=== PATIENT | female | born 1965 ===

== ENCOUNTER 2024-08-13 15:27 | Emergency (ER) | payer OTHER, SELFPAY ==
--- OUTSIDE RECORDS SUMMARY | 2024-08-13 15:32 | XMS REPORT | Continuity of Care Document ---
Author Name Unknown Address [address] [place] [address] th[address] Address [address] [place] [address] 1 495 [place] [address] Care Team Providers Care Workers Compensation Specialist Name Role Phone Unavailable Unavailable Unavailable Encounters Start Date/Time End Date/Time Encounter Type Admission Type Attending Clinicians Care Facility Care Department Encounter ID Source 2023-05-16 16:03:27 2023-05-16 16:03:27 Outpatient [facility] [id number] Trevon Ruiz 2023-01-30 14:20:43 2023-01-30 14:20:43 Outpatient [facility] [id number] Trevon Ruiz
--- NOTE | 2024-08-13 16:10 | RAD REPORT ---
EXAM: Chest Single View HISTORY: CHEST PAIN COMPARISON: None. FINDINGS: LUNGS/PLEURA: The lungs are clear. No pleural effusions or pneumothorax. No pulmonary edema. MEDIASTINUM: The mediastinal silhouette is within normal limits. CARDIAC: The cardiac silhouette is within normal limits. UPPER ABDOMEN: No significant abnormality. BONES: No acute abnormality. LINES/TUBES/OTHER: N/A IMPRESSION: No evidence of acute cardiopulmonary disease.
[2024-08-13 17:07] LABS: SARS-CoV-2 Antigen CONTROL BLUE LINE VIS/BG OK; SARS-CoV-2 Antigen Rapid Res Negative (Negative)
--- NOTE | 2024-08-13 17:12 | EDPHYS ---
Physician Documentation [facility] Name: Millie Carrero Age: 58 yrs Sex: Female : 1965 Arrival Date: 08/13/2024 Time: 15:27 Bed IW2 Private MD: ED Physician Jessee Millard HPI: 08/13 15:54 This 58 yrs old Unknown Female presents to ER via Unassigned with complaints of Cough. ms3 16:25 58-year-old female with no past medical history presents to the emergency department ms3 after becoming ill on Monday with a cough. Patient states symptoms lasted for 4 days and she took self medications and felt better. Patient states yesterday her nose began running and she developed a cough again. Patient states she is having chest discomfort that she rates a 5/10 from coughing. Patient states the pain is only present when coughing.. Historical: - Allergies: 16:19 No Known Allergies; ko1 - Home Meds: 16:19 None [Active]; ko1 - PMHx: 16:19 None; ko1 - PSHx: 16:19 Ligation of fallopian tube; breast augmentation; ko1 - Immunization history:: Adult Immunizations up to date. - Infectious Disease History:: Denies. - Social history:: Smoking status: Patient denies any tobacco usage or history of. ROS: 16:25 Constitutional: Negative for fever, and chills. ms3 16:25 Abdomen/GI: Negative for abdominal pain, nausea, vomiting, diarrhea, and constipation, MS/Extremity: Negative for injury and deformity, Skin: Negative for injury, rash, and discoloration, 16:25 Cardiovascular: Negative for edema, palpitations, 16:25 Respiratory: Positive for cough, Exam: 16:25 Constitutional: This is a well developed, well nourished patient who is awake, alert, ms3 and in no acute distress. Cardiovascular: Regular rate and rhythm with a normal S1 and S2. No gallops, murmurs, or rubs. Normal PMI, no JVD. No pulse deficits. Respiratory: Lungs have equal breath sounds bilaterally, clear to auscultation and percussion. No rales, rhonchi or wheezes noted. No increased work of breathing, no retractions or nasal flaring. Abdomen/GI: Soft, non-tender, with normal bowel sounds. No distension or tympany. No guarding or rebound. No evidence of tenderness throughout. Skin: Warm, dry with normal turgor. Normal color with no rashes, no lesions, and no evidence of cellulitis. MS/ Extremity: Pulses equal, no cyanosis. Neurovascular intact. Full, normal range of motion. Vital Signs: 16:14 BP 128 / 71; Pulse 85; Resp 16; Temp 97; Pulse Ox 100% ; ko1 MDM: 15:46 Medical Screening Exam initiated ms3 16:27 Differential Diagnosis: Bronchitis Influenza Upper Respiratory Infection Viral Syndrome.ms3 17:12 Data reviewed: vital signs, nurses notes, lab test result(s), radiologic studies, and ms3 as a result, I will discharge patient. I considered the following discharge prescriptions or medication management in the emergency department See Rx. Independent interpretation of the following test(s) in the Emergency Department X-Ray: My interpretation is CXR image reviewed by me does not reveal pna. Counseling: I had a detailed discussion with the patient and/or guardian regarding the historical points, exam findings, and any diagnostic results supporting the discharge/admit diagnosis, lab results, radiology results, the need for outpatient follow up, to return to the emergency department if symptoms worsen or persist or if there are any questions or concerns that arise at home. Special discussion: I discussed with the patient/guardian in detail that at this point there is no indication for admission to the hospital. It is understood, however, that if the symptoms persist or worsen the patient needs to return immediately for re-evaluation. ED course: Discussed negative flu, COVID, chest x-ray with patient. On reevaluation patient is alert, in no apparent distress, nontoxic-appearing, speaking full sentences, ambulatory in the emergency department. Patient to follow-up Dr. Miller in 2 to 3 days. Patient understands and agrees with plan. All questions were answered. Return precautions discussed include shortness of breath, fevers, worsening symptoms, or any other concerns.. 08/13 15:47 Order name: Flu; Complete Time: 17:08 ms3 08/13 15:47 Order name: SARS RAPID; Complete Time: 17:08 ms3 08/13 15:30 Order name: XRAY Chest (1 view); Complete Time: 16:23 ms3 Administered Medications: 15:46 CANCELLED (Physician Discretion): aspirinchewable tablet 324 mg PO once; 81 mg tablets ms3 x 4 Disposition Summary: 08/13/24 17:11 Discharge Ordered Notes: Location: Home ms3 Condition: Stable ms3 Diagnosis - Acute upper respiratory infection, unspecified ms3 - Cough ms3 Followup: ms3 - With: Hunter Miller DO - When: 2 - 3 days - Reason: Recheck today's complaints Discharge Instructions: - Discharge Summary Sheet ms3 - Upper Respiratory Infection, Adult ms3 - Cough, Adult ms3 Forms: - Medication Reconciliation Form ms3 - Antibiotic Education ms3 - Prescription Opioid Use ms3 - Patient Portal Instructions ms3 - Leadership Thank You Letter ms3 Prescriptions: - benzonatate 200 mg Oral capsule - take 1 capsule ORAL route 3 times per day as needed; 20 capsule; Refills: 0, ms3 Product Selection Permitted Signatures: Dispatcher [employer] EDJessee Nunez DO DO ms3 Tracy Palomino RN RN ko1 Corrections: (The following items were deleted from the chart) 15:46 15:30 Aspirin PO Chewable Tablet 324 mg PO once; 81 mg tablets x 4 ordered. ms3 ms3 15:46 15:30 Cardiac monitoring ordered. ms3 ms3 15:47 15:30 EKG - Nurse/Tech ordered. ms3 ms3 15:47 15:30 IV Saline Lock ordered. ms3 ms3 15:47 15:30 Labs collected and sent ordered. ms3 ms3 15:47 15:30 Oxygen Per Protocol ordered. ms3 ms3 15:48 15:30 O2 Sat Monitoring ordered. ms3 bd 15:48 15:48 Influenza Screen (A \T\ B)+BA.LAB.BRZ ordered. EDMS EDMS 15:48 15:48 SARS-COV-2 Antigen Rapid+I.LAB.BRZ ordered. EDMS EDMS 15:48 15:48 Chest Pa And Lat (2 Views)+RAD.RAD.BRZ ordered. EDMS EDMS 15:52 15:30 BASIC METABOLIC PANEL+C.LAB.BRZ ordered. EDMS EDMS 15:52 15:30 CBC+H.LAB.BRZ ordered. EDMS EDMS 15:52 15:30 HEPATIC FUNCTION+C.LAB.BRZ ordered. EDMS EDMS 15:52 15:31 MAGNESIUM+C.LAB.BRZ ordered. EDMS EDMS 15: 15:31 PROBNP+C.LAB.BRZ ordered. EDMS EDMS 15:31 PROTIME (+INR)+COAG.LAB.BRZ ordered. EDMS EDMS : 15:31 Troponin High Sensitivity+C.LAB.BRZ ordered. EDMS EDMS
--- NOTE | 2024-08-13 17:12 | ER ---
Nurse's Notes [facility] Name: Millie Carrero Age: 58 yrs Sex: Female : 1965 Arrival Date: 08/13/2024 Time: 15:27 Bed IW2 Private MD: Diagnosis: Acute upper respiratory infection, unspecified;Cough Presentation: 08/13 16:14 Chief complaint: Patient states: cough, drainage, congestion off and on for a week. ko1 Coronavirus screen: At this time, the client does not indicate any symptoms associated with coronavirus-19. Ebola Screen: No symptoms or risks identified at this time. Initial Sepsis Screen: Does the patient meet any 2 criteria? No. Patient's initial sepsis screen is negative. Does the patient have a suspected source of infection? No. Patient's initial sepsis screen is negative. Risk Assessment: Do you want to hurt yourself or someone else? Patient reports no desire to harm self or others. Onset of symptoms is unknown. 16:14 Method Of Arrival: Ambulatory ko1 16:14 Acuity: ADRIANA 4 ko1 Triage Assessment: 16:19 General: Appears ill, Behavior is calm, cooperative, appropriate for age. Pain: ko1 Complains of pain in chest. Cardiovascular: Reports congestion. Respiratory: Reports cough that is. Historical: - Allergies: 16:19 No Known Allergies; ko1 - Home Meds: 16:19 None [Active]; ko1 - PMHx: 16:19 None; ko1 - PSHx: 16:19 Ligation of fallopian tube; breast augmentation; ko1 - Immunization history:: Adult Immunizations up to date. - Infectious Disease History:: Denies. - Social history:: Smoking status: Patient denies any tobacco usage or history of. Screenin:56 [facility] ED Fall Risk Assessment (Adult) History of falling in the last 3 months, ll1 including since admission No falls in past 3 months (0 pts) Confusion or Disorientation No (0 pts) Intoxicated or Sedated No (0 pts) Impaired Gait No (0 pts) Mobility Assist Device Used No (0 pt) Altered Elimination No (0 pt) Score/Fall Risk Level 0 - 2 = Low Risk Maintained a safe environment, Hourly rounding (assess needs \T\ fall precautionary measures) done. Abuse screen: Denies threats or abuse. Nutritional screening: No deficits noted. Tuberculosis screening: No symptoms or risk factors identified. Assessment: 17:56 Reassessment: No changes from previously documented assessment. Patient and/or family ll1 updated on plan of care and expected duration. Pain level reassessed. 17:57 Pain: Pain does not radiate. Pain began 2-3 days ago. ll1 Vital Signs: 16:14 BP 128 / 71; Pulse 85; Resp 16; Temp 97; Pulse Ox 100% ; ko1 ED Course: 15:29 Patient arrived in ED. al6 15:29 Jessee Millard DO is Attending Physician. ms3 15:49 XRAY Chest (1 view) In Process Unspecified. EDMS 16:19 Triage completed. ko1 16:20 Arm band placed on right wrist. Patient placed in waiting room, Patient notified of ko1 wait time. 16:31 SARS RAPID Sent. bc6 16:31 Flu Sent. bc6 17:11 Hunter Miller DO is Referral Physician. ms3 17:56 No provider procedures requiring assistance completed. Patient did not have IV access ll1 during this emergency room visit. Patient maintains SpO2 saturation greater than 95% on room air. 17:57 Provided Education on: return to ED for worsening symptoms. ll1 17:57 Patient has correct armband on for positive identification. Cardiac monitoring not ll1 applicable on this patient. Administered Medications: 15:46 CANCELLED (Physician Discretion): aspirinchewable tablet 324 mg PO once; 81 mg tablets ms3 x 4 Medication: 17:57 VIS not applicable for this client. ll1 Outcome: 17:11 Discharge ordered by MD. ms3 17:57 Discharged to home ambulatory, ll1 17:57 Condition: stable 17:57 Discharge instructions given to patient, Instructed on discharge instructions, follow up and referral plans. medication usage, Demonstrated understanding of instructions, follow-up care, medications, Prescriptions given X 1, 17:58 Patient left the ED. ll1 Signatures: Dispatcher [employer] EDMS Nini Evans RN RN ll1 Jessee Millard DO DO ms3 Tracy Palomino RN RN ko1 Kathy Kim bc6 Renata Drew al6
[2024-08-13 18:40] VITALS: BP 128/71; TEMP 97; O2SAT 100
== END 2024-08-13 17:58 | disposition home or self-care (01) ==
LOC: ER 15:27
DX: J06.9 Acute upper respiratory infection, unspecified (principal); Z11.52 Encounter for screening for COVID-19; Z98.82 Breast implant status
CPT/HCPCS: 36415; 71045; 87804; 87811